=== PATIENT | female | born 1965 | race Caucasian/White ===

== ENCOUNTER 2018-12-10 08:45 | Day surgery (SDC) | payer MEDICAID ==
[~2018-12-10 08:45] MED LIST: Cefuroxime 10 MG/ML SYRINGE EYERT SCH; Lidocaine 1% PF 2 ML SDV INJECT SCH; Pilocarpine 4% Ophth Soln 15 ML Bot EYERT SCH
[2018-12-10] MEDS: Polymyxin B/Trimethoprim 10 ML Bottle EYERT SCH ×3 (09:00→10:46)
[2018-12-10] MEDS: Brimonidine 0.2% Ophth Soln 5 ML Bottle EYERT SCH ×3 (09:05→10:46)
[2018-12-10] MEDS: Phenylephrine 2.5% Ophth Soln 2 ML Bot EYERT SCH ×5 (09:12→10:22)
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
[2018-12-10] MEDS ORDERED: Lactated Ringers 1,000 ML IV SCH (09:15)
[2018-12-10] MEDS: Tropicamide 1% Ophth Soln 15 ML Bottle EYERT SCH ×4 (09:16→10:02)
[2018-12-10] MEDS: Tetracaine HCl/PF 0.5% 4 ML Bottle EYERT SCH ×4 (10:06→10:31)
[2018-12-10] MEDS ORDERED: Midazolam 1 MG/ML 2 ML SDV ONE ×3 (10:08→10:32)
--- NOTE | 2018-12-10 10:48 | PCM48HPAN ---
Post Anesthesia Note - EVALUATION WITHIN 48HRS OF ANESTHETIC Vital Signs in Normal Range: Yes Patient Participated in Evaluation: Yes Respiratory Function Stable: Yes Airway Patent: Yes Cardiovascular Function Stable: Yes Hydration Status Stable: Yes Pain Control Satisfactory: Yes Nausea and Vomiting Control Satisfactory: Yes Mental Status Recovered: Yes Pulse Rate: 103 Resp Rate: 18 Temperature: 99.5 C Blood Pressure: 168/97
[2018-12-10 11:07] VITALS: BP 121/92
== END 2018-12-10 11:00 | disposition home or self-care (01) ==
LOC: JD.SDS 08:45
PROVIDERS: ATTEND Ophthalmology
DX: H25.811 Combined forms of age-related cataract, right eye (principal); F17.200 Nicotine dependence, unspecified, uncomplicated; F41.9 Anxiety disorder, unspecified; Z98.42 Cataract extraction status, left eye; Z96.1 Presence of intraocular lens
CPT/HCPCS: 66984; A9270; C1780; J0697; J2001; J2250; J7120

== ENCOUNTER 2020-09-30 11:47 | Emergency (ER) | payer MEDICAID ==
[2020-09-30] MEDS ORDERED: diphenhydrAMINE 50 MG/ML SDV IM ONE (12:21)
[2020-09-30] MEDS ORDERED: Famotidine 20 MG Tab PO ONE (12:22)
[2020-09-30] MEDS ORDERED: Ketorolac 60 MG/2 ML SDV IM ONE (12:24)
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
[2020-09-30 12:50] VITALS: BP 153/97; PULSE 89
== END 2020-09-30 13:48 | disposition home or self-care (01) ==
LOC: JD.ED 11:47
DX: L20.89 Other atopic dermatitis (principal); F17.210 Nicotine dependence, cigarettes, uncomplicated; Z91.048 Other nonmedicinal substance allergy status; Z79.899 Other long term (current) drug therapy; Z86.73 Personal history of transient ischemic attack (TIA), and cerebral infarction without residual deficits
CPT/HCPCS: 96372; 99282; A9270; J1200; J1885; 99283